=== PATIENT | female | born 1980 | race Caucasian/White ===

== ENCOUNTER 2019-01-29 08:43 | Emergency (ER) | payer MEDICAID ==
[~2019-01-29] VITALS: Ht 157.5 cm; Wt 65.0 kg
[~2019-01-29 08:43] MED LIST: IBUP-1542 PO; TRAM50TA2 PO
[2019-01-29 08:51] VITALS: BP 125/62; PULSE 68; RESP 18; Ht 157.5 cm; Wt 65.0 kg
[2019-01-29] MEDS ORDERED: KETOROLAC 30 MG INJ IM STA (09:28)
== END 2019-01-29 10:58 | disposition home or self-care (01) ==
LOC: FTE 08:43
DX: M54.12 Radiculopathy, cervical region (principal); M79.602 Pain in left arm
CPT/HCPCS: 71045; 72040; 81025; 93005; 96372; J1885; Z7502